=== PATIENT | female | born 1965 | race Caucasian/White ===

== ENCOUNTER 2021-10-17 16:51 | Emergency (ER) | payer OTHER, MEDICAID, SELFPAY ==
[2021-10-17 17:18] VITALS: BP 160/95; PULSE 104; RESP 22; TEMP 35.7; O2SAT 99; BMI 34.7
[2021-10-17 17:52] LABS: Add Manual Diff / Slide Review NO; Basophils Absolute Auto 100 /uL (0-100); Basophils Percent Auto 0.5 % (0-2); Eosinophils Absolute Auto 300 /uL (0-450); Eosinophils Percent Auto 2.5 % (2-4); Hematocrit 42.3 % (36-46); Hemoglobin 14.5 g/dL (12.0-16.0); Lymphocytes Absolute Auto 1700 /uL (1100-4500); Lymphocytes Percent Auto 12.8 % (25-40); Mean Corpuscular HGB Conc 34.2 % (30-36); Mean Corpuscular Hemoglobin 28.9 PG (26-34); Mean Corpuscular Volume 84.3 fL (80-100); Monocytes Absolute Auto 800 /uL (0-900); Monocytes Percent Auto 6.2 % (3-14); Neutrophils Absolute Auto 10500 /uL (1500-7000); Platelet Count 281 X10^3/uL (150-400); Red Blood Cell Count 5.02 X10^6/uL (4.0-5.2); Red Cell Distribution Width 14.1 % (11.6-14.8); White Blood Cell Count 13.4 X10^3/uL (4.5-11.0)
[2021-10-17 18:10] LABS: Alanine Aminotransferase 26 IU/L (<35); Albumin 3.9 g/dL (3.5-5.0); Alkaline Phosphatase 139 U/L (38-126); Aspartate Aminotransferase 27 IU/L (14-36); BUN Creatinine Ratio 25.7 (6-22); Bilirubin Total 0.6 mg/dL (0.2-1.3); Blood Urea Nitrogen 9 mg/dL (7-17); Calcium 9.4 mg/dL (8.4-10.2); Carbon Dioxide 29 mmol/L (22-32); Chloride 92 mmol/L (98-107); Estimated Glomerular Filt Rate > 60 mL/min (>60); Globulin 4.1 g/dL (1.7-4.1); Glucose 391 mg/dL (70-100); HEMOLYSIS 17 (0-50); Lipase 405 U/L (23-300); Potassium 4.3 mmol/L (3.4-5.1); Sodium 131 mmol/L (137-145)
[2021-10-17 19:18] LABS: Bacteria Urine Occasional (0-1); Culture Indicated Urine Cult Not Indicated; RBC Urine 10-30/HPF (0-5/HPF); Squamous Epithelial Cell Urine 0-1 /HPF (0-5/HPF); WBC Urine 0-1/HPF (0-5/HPF)
== END 2021-10-17 19:11 | disposition left against medical advice (07) ==
PROVIDERS: Emergency Medicine; Emergency Provider Emergency Medicine
DX: R42 Dizziness and giddiness (principal); R11.10 Vomiting, unspecified
CPT/HCPCS: 80053; 81003; 81015; 83690; 85025; 99282

== ENCOUNTER 2024-08-31 15:18 | Emergency (ER) | payer OTHER, SELFPAY ==
[2024-08-31] VITALS (11 sets, daily range): BP systolic 103–171; BP diastolic 56–77; PULSE 96–110; RESP 14–24; TEMP 36.8; O2SAT 97–100; BMI 25.7
--- NOTE | 2024-08-31 15:49 | DI.RAD.S_ITS ---
PROCEDURE: XR CHEST 1V INDICATIONS: suspected sepsis TECHNIQUE: One view of the chest was acquired. COMPARISON: [facility], CT, CT CHEST WITHOUT CONTRAST, 11/08/2023, 17:52. FINDINGS: Surgical changes and devices: Right upper quadrant surgical clips. Lungs and pleura: Lungs are clear. No pleural effusions or pneumothorax. Mediastinum: Mediastinal contours appear normal. Heart size is normal. Bones and chest wall: No suspicious bony lesions. Overlying soft tissues appear unremarkable. IMPRESSION: No acute cardiopulmonary abnormality is seen. Approved by: Jesus Reyes M.D. on 08/31/2024 at 17:28
--- NOTE | 2024-08-31 15:50 | DI.RAD.S_ITS ---
PROCEDURE: XR TOE RT MIN 2V INDICATIONS: infection TECHNIQUE: AP view of the foot in two views of the 2nd toe acquired. COMPARISON: [facility], CR, XR FOOT 3+ VIEWS RIGHT, 10/02/2021, 11:06. FINDINGS: Bones: Focal cortical destruction at the tuft of the 2nd distal phalanx is suspicious for osteomyelitis. No acute osseous fracture or dislocation. Soft tissues: Soft tissue edema is seen in the 2nd toe. IMPRESSION: Focal cortical erosion at the tuft of the 2nd distal phalanx is suspicious for osteomyelitis. Approved by: Jesus Reyes M.D. on 08/31/2024 at 17:29
--- NOTE | 2024-08-31 16:12 | EKG_ITS ---
[address] [address] [address], [place] [address] Test Date: 2024-08-31 Pat Name: Jessica Ervin Department: [facility] Room: Gender: Female Engineering Group Manager: AKIRA : 1965 Requested By: Order Number: [id number] Reading MD: Miguel Ángel Freeman MD Measurements Intervals [place] Rate: 104 P: 29 MN: 148 QRS: 10 QRSD: 80 T: 74 QT: 344 QTc: 452 Interpretive Statements Sinus tachycardia Electronically Signed On 08-31-2024 16:24:02 PDT by Miguel Ángel Freeman MD
[2024-08-31 16:23] LABS: Base Excess VBG 1.9 mmol/L (0-4); HCO3 VBG 28 mmol/L (24-28); Oxygen Saturation VBG 56 % (70-75); PCO2 VBG 46.1 mmHg (45-50); PO2 VBG 30 mmHg (35-45); Total CO2 VBG 26 mmol/L (24-29); pH VBG 7.38 (7.33-7.43)
[2024-08-31 16:32] LABS: Add Manual Diff / Slide Review NO; Hematocrit 32.3 % (36-46); Hemoglobin 10.7 g/dL (12.0-16.0); Lymphocytes Absolute Auto 1500 /uL (1100-4500); Mean Corpuscular HGB Conc 33.0 % (30-36); Mean Corpuscular Hemoglobin 28.6 PG (26-34); Mean Corpuscular Volume 86.8 fL (80-100); Platelet Count 266 X10^3/uL (150-400)
[2024-08-31 16:39] LABS: INR 1.2 (0.9-1.3); Prothrombin Time 14.0 SECONDS (9.4-12.5)
[2024-08-31 16:41] LABS: PTT Partial Thromboplastin Tim 28 SECONDS (25.1-36.5)
[2024-08-31 16:43] LABS: Alanine Aminotransferase 32 IU/L (<35); Albumin 3.7 g/dL (3.5-5.0); Albumin Globulin Ratio 1.0 (1.0-2.8); Alkaline Phosphatase 148 U/L (38-126); Blood Urea Nitrogen 14 mg/dL (7-17); Calcium 9.0 mg/dL (8.4-10.2); Carbon Dioxide 24 mmol/L (22-32); Chloride 98 mmol/L (98-107); Estimated Glomerular Filt Rate > 60 mL/min (>60); Globulin 3.8 g/dL (1.7-4.1); Glucose 205 mg/dL (70-99); HEMOLYSIS < 15 (0-50); Lactate (Lactic Acid) 3.2 mmol/L (0.7-2.1); Lipase 26 U/L (23-300); Potassium 3.5 mmol/L (3.4-5.1); Sodium 134 mmol/L (137-145); Total Protein 7.5 g/dL (6.3-8.2)
[2024-08-31] MEDS: SODIUM CHLORIDE 0.9% 1,000 ML 1000 ML IV (16:55)
[2024-08-31 17:00] LABS: Procalcitonin 0.309 ng/mL (<0.5)
[2024-08-31 17:59] LABS: Reflexed Lactate in 2 Hours Y
[2024-08-31] MEDS: cefTRIAXone 2,000 MG in SODIUM CHLORIDE 0.9% 100 ML 200 MG IV (18:14)
[2024-08-31 18:49] LABS: Lactate 2HR (Lactic Acid Rflx) 1.7 mmol/L (0.7-2.1)
[2024-08-31] MEDS: VANCOMYCIN 1,000 MG in SODIUM CHLORIDE 0.9% 250 ML 250 MG IV (19:22)
--- NOTE | 2024-08-31 19:32 | ED.EXTPRO ---
HPI - Extremity Problem General Chief complaint: Extremity Problem,Nontraumatic Stated complaint: Toe infection - black and swelling Time Seen by Provider: 08/31/24 15:20 Source: patient Mode of arrival: Wheelchair History of Present Illness HPI Narrative: Patient is a 59-year-old female with a past medical history of diabetes, hypertension, comes into the ED from home for evaluation of discoloration swelling pain to right her 2nd digit of her right toe. Patient states that she noticed some discoloration swelling a few days ago but overnight it got worse therefore decided come into the ED for further evaluation treatment. Patient denies any other injury trauma not on any blood thinners. Related Data Previous Rx's ?Medication ?Instructions ?Recorded doxycycline hyclate 100 mg capsule 100 mg PO BID 7 days #14 caps 08/31/24 Allergies Allergy/AdvReac Type Severity Reaction Status Date / Time cephalexin Allergy Anaphylaxis Verified 08/31/24 15:07 Review of Systems Review of Systems Narrative: General: Denies fever, chills, weight loss HEENT: Denies headache, eye drainage, eye irritation, head trauma, sore throat, voice change Cardiovascular: Denies any chest pain, palpitations, tachycardia Respiratory: Denies any shortness of breath, cough, wheeze, stridor GI/: Denies any abdominal pain, nausea, vomiting, diarrhea, bright red blood per rectum, melanotic stools, urinary frequency, urinary retention, dysuria, hematuria MSK: Right 2nd toe swelling pain discoloration Skin: Denies any rashes, lesions, discoloration Neuro: Denies any headache, lightheadedness, dizziness, fainting, weakness Psych: Denies SI/HI Patient History Social History Smoking Status: Current every day smoker Smoking Status: Current every day smoker tobacco type: cigarettes and vaping alcohol intake frequency: other Exam Narrative Exam Narrative: General: Cooperative, well-developed, not in acute distress HEENT: Normocephalic, atraumatic, PERRLA, normal sclera, eyelids normal Neck: Active full range of motion, atraumatic Chest: Normal to inspection, negative crepitus, no overlying erythema ecchymosis Respiratory: Normal respiratory effort, not in acute respiratory distress, clear to auscultation bilaterally negative cough, wheeze, tachypnea, rhonchi, rales Cardiology: Regular rate rhythm negative gallop, murmur, rubs GI/: No tenderness to palpation, soft, non rigid, normal to inspection, exam deferred MSK: Lower extremities neurovascularly intact, they 2nd digit of the right toe is edematous erythematous, there is no streaking noted but minor tenderness to palpation Skin: No rashes or lesions noted Neuro: Alert awake oriented x3, moves all 4 extremities spontaneously, cranial nerves intact, able to answer all questions appropriately follows commands appropriately Psych: Cooperative, negative suicidal or homicidal ideations Initial Vital Signs Initial Vital Signs: Vital Signs Temperature 98.3 F 08/31/24 15:23 Pulse Rate 110 H 08/31/24 15:23 Respiratory Rate 20 08/31/24 15:23 Blood Pressure 103/56 L 08/31/24 15:23 Pulse Oximetry 99 08/31/24 15:23 Oxygen Delivery Method Room Air 08/31/24 15:23 Course Orders Ordered: ED Orders 08/31/24 15:49 XR chest 1V Stat EKG-12 Lead Stat RT Consult Eval and Treat NOW 08/31/24 15:50 XR toe RT min 2V Stat 08/31/24 15:53 VBG [Venous Blood Gas] STAT 08/31/24 16:15 Complete Blood Count AUTO DIFF Stat Comprehensive Metabolic Panel Stat Lactate (Lactic Acid) Stat Lipase Stat PTT Partial Thromboplastin Rei Stat Procalcitonin Stat Prothrombin Time INR Stat 08/31/24 16:18 Venous Blood Gas Routine 08/31/24 16:26 Blood Culture Stat 08/31/24 19:21 MR foot RT wo/w con Urgent 09/01/24 BMP [Basic Metabolic Panel] Routine 09/02/24 06:30 Vancomycin Trough Urgent Vancomycin HCl 1,000 mg/ (Sodium Chloride) 250 mls @ 250 mls/hr IV Q12H SHARRI Last Admin: 08/31/24 19:22 Dose: 250 mls/hr Documented By: ES Ondansetron HCl (Ondansetron 4 Mg/2 Ml Inj) 4 mg IV NOW PRN PRN Reason: Nausea And Vomiting Ondansetron HCl (Ondansetron 4 Mg Odt) 4 mg PO NOW PRN PRN Reason: Nausea And Vomiting Vancomycin HCl (Vancomycin Trough) 1 request MISC NOW ONE Stop: 09/02/24 06:31 Discontinued Medications Sodium Chloride (Normal Saline 0.9%) 1,000 mls @ 1,000 mls/hr IV BOLUS ONE Stop: 08/31/24 16:48 Last Infusion: 08/31/24 18:13 Dose: Infused Documented By: Admin: 08/31/24 16:55 Dose: 1,000 mls/hr Documented By: KVNG Ceftriaxone Sodium 2,000 mg/ (Sodium Chloride) 100 mls @ 200 mls/hr IV NOW ONE Stop: 08/31/24 17:48 Last Infusion: 08/31/24 19:22 Dose: Infused Documented By: Admin: 08/31/24 18:14 Dose: 200 mls/hr Documented By: SOFIA Vancomycin HCl (Vancomycin Per Pharmacy) 1 request MISC NOW ONE Stop: 08/31/24 17:48 Last Admin: 08/31/24 18:59 Dose: Not Given Documented By: SOFIA Vital Signs Vital signs: Vital Signs - 8 hr 08/31/24 15:23 08/31/24 17:07 08/31/24 17:08 Temperature 98.3 F Pulse Rate 110 H 100 H Respiratory Rate 20 14 Blood Pressure 103/56 L 114/77 Pulse Oximetry 99 98 Oxygen Delivery Method Room Air 08/31/24 17:08 08/31/24 17:30 08/31/24 18:00 Temperature Pulse Rate 100 H 97 H 97 H Respiratory Rate 16 19 19 Blood Pressure Pulse Oximetry 97 98 97 Oxygen Delivery Method 08/31/24 18:15 08/31/24 18:15 08/31/24 18:30 Temperature Pulse Rate 96 H Respiratory Rate 18 Blood Pressure 121/58 L 121/59 L Pulse Oximetry 97 Oxygen Delivery Method 08/31/24 18:30 08/31/24 19:10 Temperature Pulse Rate 96 H 99 H Respiratory Rate 21 Blood Pressure Pulse Oximetry 98 Oxygen Delivery Method MDM - Extremity (Nontraumatic) Lab Data 08/31/24 16:15 08/31/24 16:15 Labs: Lab Results 08/31/24 08/31/24 08/31/24 Range/Units 16:15 16:18 18:28 WBC 14.5 H (4.5-11.0) X10^3/uL RBC 3.72 L (4.0-5.2) X10^6/uL Hgb 10.7 L (12.0-16.0) g/dL Hct 32.3 L (36-46) % MCV 86.8 (80-100) fL MCH 28.6 (26-34) PG MCHC 33.0 (30-36) % RDW 13.2 (11.6-14.8) % Plt Count 266 (150-400) X10^3/uL Neut % (Auto) 79.5 H (50-75) % Lymph % (Auto) 10.1 L (25-40) % [place] % (Auto) 9.4 (3-14) % Eos % (Auto) 0.5 L (2-4) % Baso % (Auto) 0.5 (0-2) % Neut # (Auto) 14669 H (5025-2937) /uL Lymph # (Auto) 1500 (5175-1180) /uL [place] # (Auto) 1400 H (0-900) /uL Eos # (Auto) 100 (0-450) /uL Baso # (Auto) 100 (0-100) /uL PT 14.0 H (9.4-12.5) SECONDS INR 1.2 (0.9-1.3) APTT 28 (25.1-36.5) SECONDS VBG pH 7.38 (7.33-7.43) VBG pCO2 46.1 (45-50) mmHg VBG pO2 30 L (35-45) mmHg VBG HCO3 28 (24-28) mmol/L VBG Total CO2 26 (24-29) mmol/L VBG O2 Saturation 56 L (70-75) % VBG Base Excess 1.9 (0-4) mmol/L Sodium 134 L (137-145) mmol/L Potassium 3.5 (3.4-5.1) mmol/L Chloride 98 (98-107) mmol/L Carbon Dioxide 24 (22-32) mmol/L BUN 14 (7-17) mg/dL Creatinine 0.81 (0.52-1.04) mg/dL Estimated GFR > 60 (>60) mL/min BUN/Creatinine Ratio 17.3 (6-22) Glucose 205 H (70-99) mg/dL Lactate 3.2 H 1.7 (0.7-2.1) mmol/L Calcium 9.0 (8.4-10.2) mg/dL Total Bilirubin 0.7 (0.2-1.3) mg/dL AST 34 (14-36) IU/L ALT 32 (<35) IU/L Alkaline Phosphatase 148 H (38-126) U/L Total Protein 7.5 (6.3-8.2) g/dL Albumin 3.7 (3.5-5.0) g/dL Globulin 3.8 (1.7-4.1) g/dL Albumin/Globulin Ratio 1.0 (1.0-2.8) Lipase 26 (23-300) U/L Procalcitonin 0.309 (<0.5) ng/mL Imaging Data Extremity x-ray #1: Radiologist's Impression: [address] [address] XRay Report Signed Patient: Jessica Ervin MR#: [id number] : 1965 Acct:[id number] Age/Sex: 59 / F Date of Service: 08/31/24 Loc: ED Accession Number: [id number] Procedure: XR toe RT min 2V Ordering Provider: Sabrina Jha MD PROCEDURE: XR TOE RT MIN 2V INDICATIONS: infection TECHNIQUE: AP view of the foot in two views of the 2nd toe acquired. COMPARISON: [facility], CR, XR FOOT 3+ VIEWS RIGHT, 10/02/2021, 11:06. FINDINGS: Bones: Focal cortical destruction at the tuft of the 2nd distal phalanx is suspicious for osteomyelitis. No acute osseous fracture or dislocation. Soft tissues: Soft tissue edema is seen in the 2nd toe. IMPRESSION: Focal cortical erosion at the tuft of the 2nd distal phalanx is suspicious for osteomyelitis. [facility] Narrative Medical decision making narrative: Patient is a 59-year-old female with a past medical history of hypertension diabetes insulin-dependent presenting in for 2nd digit right foot swelling pain discoloration. States it started few days ago but worse over the night. Patient states that she did not have any trauma to it not complaining of any other symptoms. Lab work was remarkable for sirs criteria, WBC 14.5 with a tachycardia, x-ray of the foot does show possible osteomyelitis, patient did receive broad-spectrum antibiotics vanc [place], I had a lengthy conversation with the patient regards to admission in regards to possible osteomyelitis and need for persistent IV antibiotics, MRI and orthopedic surgery, she states that she does not want to be admitted, she states that she has all of her other care at other outside hospitals and would rather follow up with them, informed her that this will be leaving against medical advice, risks benefits were discussed she understands she has medical capacity immediately leaving against medical advice. I will send her home with oral antibiotics and instructed to follow up with Orthopedic surgery in outpatient setting. She verbalized understanding of this and will be leaving against medical advice Discharge Plan Departure Patient Disposition: Left Against Medical Advice Clinical Impression: Left against medical advice, Osteomyelitis, Cellulitis Instructions: DI for Cellulitis -- Adult, DI for Osteomyelitis Activity Restrictions/Additional Instructions: Please return immediately if you have worsening symptoms, please follow up with Orthopedic surgery in outpatient setting We have discussed and explained the clinical examination, laboratory results, and imaging studies so far with the patient, both with full medical disclosure and layman's terms. The patient is an adult and is of sound mind. The patient appears to have intact insight, judgement and reason. Is alert and oriented x4. The patient is clinically sober and appears free from any distracting injury. The patient verbalized understanding. Despite incomplete workup the patient expresses a wish to leave. We have explained to the patient that leaving now would be leaving against medical advice. We have explained that leaving against medical advice without a complete workup and/or identification of pathology may lead to worsening of symptoms and even the possibility of disability or . The patient understands that the only way to safely avoid this is to complete the workup as leaving the grounds of the hospital would be leaving the care of trained front office medical assistant, specialists, and resources that were available to the patient. We have expressed the need for the patient to stay in the hospital, considering the constellation of symptoms of breath the patient here. Despite this lengthy conversation the patient still expresses desire to leave against medical advice and demonstrates a full capacity to make their own medical decisions. We have informed the patient to call 911 or to seek immediate medical attention at their nearest emergency department if there are symptoms were to worsen/or change their mind. Prescriptions: New doxycycline hyclate 100 mg capsule 100 mg PO BID 7 Days Qty: 14 0RF Referrals: Miscellaneous,MD Sh[facility] [Primary Care Provider, Medical] Anuel Wetzel MD [Physician, Orthopedic Surgery] Referral Note: Possible osteomyelitis Stand Alone Forms: Patient Portal/API, Against Med. Advice (Slovak)
== END 2024-08-31 20:34 | disposition left against medical advice (07) ==
PROVIDERS: Emergency Medicine; Emergency Provider Student in an Organized Health Care Education/Training Program
DX: L03.031 Cellulitis of right toe (principal); M86.9 Osteomyelitis, unspecified; R00.0 Tachycardia, unspecified; Z53.29 Procedure and treatment not carried out because of patient's decision for other reasons
CPT/HCPCS: 36415; 71045; 73660; 80053; 82805; 83605; 83690; 84145; 85025; 85610; 85730; 87040; 93005; 93010; 96361; 96365; 96367; 99284; J0696

== ENCOUNTER 2025-01-25 17:04 | Emergency (ER) | payer OTHER, SELFPAY ==
[2025-01-25] VITALS (8 sets, daily range): BP systolic 122–184; BP diastolic 75–88; PULSE 91–109; RESP 12; TEMP 36.8; O2SAT 98–99; BMI 26.0
--- NOTE | 2025-01-25 17:19 | ED_ITS ---
HPI - General Adult General Chief complaint: Diabetic Problem Stated complaint: several falls , Tailbone/back pn, diabetic Time Seen by Provider: 01/25/25 17:12 History of Present Illness HPI narrative: 59-year-old female patient with a history of insulin-dependent diabetes, tobacco smoking/COPD and chronic pain who who crumpled to the ground 4 times within an hour to which she attributes to low blood sugar and complains of tailbone pain and exacerbation of her chronic back pain. No other injury. No head trauma or neck pain. She says she thinks her Lantus and regular built up to a point that her sugar was too low although her lowest glucose check at home was 81. Related Data Allergies Allergy/AdvReac Type Severity Reaction Status Date / Time cephalexin Allergy Anaphylaxis Verified 01/25/25 17:22 Review of Systems Review of Systems ROS Unobtainable: All systems reviewed & are unremarkable except as noted in HPI and below Musculoskeletal Musculoskeletal: Reports as per HPI Endocrine Endocrine: Reports as per HPI Patient History tobacco type: cigarettes and vaping alcohol intake frequency: other Exam Narrative Exam Narrative: General: Alert and conversant. Mild distress. Appears well nourished and well hydrated Craniofacial: No evidence of trauma. Nontender and no swelling. Eyes: PERRLA EOMI conjunctiva clear HEENT: Tragus, pinnae nontender. Tympanic membranes normal appearance. Oropharynx clear with no swelling, exudate or asymmetry of the pharynx. Nares clear. No sinus tenderness Neck: No tenderness or adenopathy. No meningismus. No JVD Lungs: Clear to auscultation with good air movement. No wheezing, rales or rhonchi. No respiratory distress Cardiac: Regular rate and rhythm with no appreciable murmur or gallop Abdomen: Soft, nontender with no distention or masses. Normal bowel sounds. No rebound or guarding Musculoskeletal: Tenderness over the sacrum and coccyx. Otherwise Exam of the extremities, axial spine and ribcage reveals no deformity, bony tenderness or swelling. Range of motion intact Neuro: Alert and oriented. Cranial nerves, motor, sensory and cerebellar all grossly intact. No focal deficit Skin: Warm and normal color. No rashes Psychological: Normal affect and interaction. No evidence of delusion or psychosis. Normal mood. Initial Vital Signs Initial Vital Signs: Vital Signs Temperature 98.2 F 01/25/25 17:19 Pulse Rate 109 H 01/25/25 17:19 Respiratory Rate 12 01/25/25 17:19 Blood Pressure 122/77 01/25/25 17:19 Pulse Oximetry 99 01/25/25 17:19 Oxygen Delivery Method Room Air 01/25/25 17:19 Course Orders Ordered: ED Orders 01/25/25 17:21 XR sacrum coccyx min 2V Stat 01/25/25 17:40 CBC Auto Diff [Complete Blood Count AUTO DIFF] Stat CMP [Comprehensive Metabolic Panel] Stat Ethanol (ETOH) Stat 01/25/25 19:43 XR thoracic spine 2V Urgent Discontinued Medications Sodium Chloride (Normal Saline 0.9%) 1,000 mls @ 1,000 mls/hr IV BOLUS ONE Stop: 01/25/25 18:20 Last Infusion: 01/25/25 19:42 Dose: Infused Documented By: Admin: 01/25/25 18:17 Dose: 1,000 mls/hr Documented By: JAMAL Vital Signs Vital signs: Vital Signs - 8 hr 01/25/25 17:19 01/25/25 19:44 01/25/25 19:44 Temperature 98.2 F Pulse Rate 109 H 96 H Respiratory Rate 12 Blood Pressure 122/77 165/75 H 165/75 H Pulse Oximetry 99 99 Oxygen Delivery Method Room Air 01/25/25 20:00 01/25/25 20:32 01/25/25 21:00 Temperature Pulse Rate 93 H 95 H 91 H Respiratory Rate Blood Pressure Pulse Oximetry 98 98 99 Oxygen Delivery Method 01/25/25 21:30 01/25/25 21:45 01/25/25 21:46 Temperature Pulse Rate 97 H 96 H Respiratory Rate Blood Pressure 184/88 H Pulse Oximetry 98 98 Oxygen Delivery Method Medical Decision Making Lab Data Lab results reviewed: Yes I reviewed the patient's lab results. Lab results narrative: CBC and CMP unremarkable. Glucose 230 01/25/25 17:40 01/25/25 17:40 Labs: Lab Results 01/25/25 01/25/25 Range/Units 17:40 20:00 WBC 6.6 (4.5-11.0) X10^3/uL RBC 4.35 (4.0-5.2) X10^6/uL Hgb 11.8 L (12.0-16.0) g/dL Hct 36.0 (36-46) % MCV 82.7 (80-100) fL MCH 27.1 (26-34) PG MCHC 32.7 (30-36) % RDW 15.3 H (11.6-14.8) % Plt Count 262 (150-400) X10^3/uL Neut % (Auto) 56.2 (50-75) % Lymph % (Auto) 28.2 (25-40) % [place] % (Auto) 11.9 (3-14) % Eos % (Auto) 3.1 (2-4) % Baso % (Auto) 0.6 (0-2) % Neut # (Auto) 3700 (1005-6644) /uL Lymph # (Auto) 1900 (1555-2834) /uL [place] # (Auto) 800 (0-900) /uL Eos # (Auto) 200 (0-450) /uL Baso # (Auto) 0 (0-100) /uL Sodium 136 L (137-145) mmol/L Potassium 4.4 (3.4-5.1) mmol/L Chloride 100 (98-107) mmol/L Carbon Dioxide 27 (22-32) mmol/L BUN 16 (7-17) mg/dL Creatinine 0.61 (0.52-1.04) mg/dL Estimated GFR > 60 (>60) mL/min BUN/Creatinine Ratio 26.2 H (6-22) Glucose 371 H (70-99) mg/dL POC Whole Bld Glucose 230 H (70-99) mg/dL Calcium 9.5 (8.4-10.2) mg/dL Total Bilirubin 0.3 (0.2-1.3) mg/dL AST 37 H (14-36) IU/L ALT 37 H (<35) IU/L Alkaline Phosphatase 175 H (38-126) U/L Total Protein 8.0 (6.3-8.2) g/dL Albumin 4.0 (3.5-5.0) g/dL Globulin 4.0 (1.7-4.1) g/dL Albumin/Globulin Ratio 1.0 (1.0-2.8) Ethyl Alcohol < 10 (<10) mg/dL Point of Care Testing Glucose POC 230 Point of care testing: Point of Care Testing Glucose POC 230 Imaging Data Sacrum and coccyx: Attestation: I personally reviewed and interpreted this imaging study as follows: (No fracture evident) Thoracic spine radiographs: Attestation: I personally reviewed and interpreted this imaging study as follows: (No fracture or malalignment) MDM Narrative Medical decision making narrative: Patient was worried about her blood sugar but that has been monitored and stable. She had a fall on her coccyx but has no fracture. Also worried about exacerbation of her chronic back pain but has no fracture in the thoracic area. She has contusion and thoracic strain. Patient given instructions on managing these problems and avoiding falls. Recommended she use a walker. Follow up closely with her provider. Return to the ER if worse. Discharge Plan Departure Patient Disposition: Home Clinical Impression: Coccyx contusion, Ground-level fall, Strain of thoracic back region Instructions: Contusion, How to Prevent Falls, Thoracic Back Pain Activity Restrictions/Additional Instructions: Plan: Rest and supportive care. Warm or cold packs. [id number] medicine for pain. Follow up with your doctor for reassessment if not improving. May need physical therapy. Referrals: Miscellaneous,Doctor[facility] [Primary Care Provider, Medical] Stand Alone Forms: Patient Portal/API
--- NOTE | 2025-01-25 17:21 | DI.RAD.S_ITS ---
PROCEDURE: XR SACRUM COCCYX MIN 2V INDICATIONS: Trauma TECHNIQUE: 3 views of the sacrum and coccyx acquired. COMPARISON: None. FINDINGS: Bones: No fractures or dislocations. No suspicious bony lesions. Mild to moderate bilateral sacroiliac joint arthrosis. Mild grade 1 anterolisthesis of L5 on S1 likely secondary to degenerative disc disease. Soft tissues: Visualized bowel gas pattern is normal. No suspicious soft tissue densities. IMPRESSION: No acute osseous abnormality. Dictated by: Zhen Rico M.D. on 01/25/2025 at 18:17 Approved by: Zhen Rico M.D. on 01/25/2025 at 18:19
[2025-01-25 17:48] LABS: Add Manual Diff / Slide Review NO; Hematocrit 36.0 % (36-46); Hemoglobin 11.8 g/dL (12.0-16.0); Lymphocytes Absolute Auto 1900 /uL (1100-4500); Mean Corpuscular HGB Conc 32.7 % (30-36); Mean Corpuscular Hemoglobin 27.1 PG (26-34); Mean Corpuscular Volume 82.7 fL (80-100); Platelet Count 262 X10^3/uL (150-400)
[2025-01-25 18:07] LABS: Alanine Aminotransferase 37 IU/L (<35); Albumin 4.0 g/dL (3.5-5.0); Albumin Globulin Ratio 1.0 (1.0-2.8); Alkaline Phosphatase 175 U/L (38-126); Blood Urea Nitrogen 16 mg/dL (7-17); Calcium 9.5 mg/dL (8.4-10.2); Carbon Dioxide 27 mmol/L (22-32); Chloride 100 mmol/L (98-107); Estimated Glomerular Filt Rate > 60 mL/min (>60); Ethanol (ETOH) < 10 mg/dL (<10); Globulin 4.0 g/dL (1.7-4.1); Glucose 371 mg/dL (70-99); HEMOLYSIS < 15 (0-50); Potassium 4.4 mmol/L (3.4-5.1); Sodium 136 mmol/L (137-145); Total Protein 8.0 g/dL (6.3-8.2)
[2025-01-25] MEDS: SODIUM CHLORIDE 0.9% 1,000 ML 1000 ML IV (18:17)
--- NOTE | 2025-01-25 19:43 | DI.RAD.S_ITS ---
PROCEDURE: XR THORACIC SPINE 2V INDICATIONS: trauma TECHNIQUE: 3 views of the thoracic spine were acquired. COMPARISON: None. FINDINGS: Bones: No displaced fractures or dislocations. No suspicious bony lesions. 12 pairs of ribs are noted, and appear intact where visualized. Soft tissues: No paravertebral stripe thickening. Surgical clips in the right upper quadrant. IMPRESSION: No displaced fracture or traumatic malalignment. Dictated by: Dino Valenzuela M.D. on 01/25/2025 at 21:05 Approved by: Dino Valenzuela M.D. on 01/25/2025 at 21:07
== END 2025-01-25 21:59 | disposition home or self-care (01) ==
PROVIDERS: Emergency Provider Emergency Medicine
DX: S30.0XXA Contusion of lower back and pelvis, initial encounter (principal); S29.012A Strain of muscle and tendon of back wall of thorax, initial encounter; E11.9 Type 2 diabetes mellitus without complications; W18.30XA Fall on same level, unspecified, initial encounter; Z79.4 Long term (current) use of insulin
CPT/HCPCS: 36415; 72070; 72220; 80053; 80320; 82962; 85025; 99284; J7030